=== PATIENT | male | born 1950 | race Two or more races ===

== ENCOUNTER 2024-07-02 12:49 | Emergency (ER) | payer MEDICARE ==
[~2024-07-02] VITALS: Ht 172.7 cm; Wt 72.7 kg
[2024-07-02 12:51] VITALS: BP 127/71; PULSE 65; RESP 16; TEMP 98; O2SAT 97
[2024-07-02] MEDS ORDERED: FLO0.4C PO (13:13)
== END 2024-07-02 13:20 | disposition home or self-care (01) ==
LOC: ER 12:51
DX: N40.1 Benign prostatic hyperplasia with lower urinary tract symptoms (principal); Z76.0 Encounter for issue of repeat prescription
CPT/HCPCS: 99281